=== PATIENT | female | born 1955 | race Two or more races ===

== ENCOUNTER 2017-04-04 08:07 | Emergency (ER) | payer MEDICARE, OTHER ==
[~2017-04-04] VITALS: Ht 162.6 cm; Wt 72.6 kg
[2017-04-04] MEDS ORDERED: NS 275ml ONE (08:26)
[2017-04-04 08:38] LABS: HEMOGLOBIN 15.4 G/DL (12.0-16.0); MEAN CORPUSCULAR VOLUME 92 FL (80-99); PLATELET COUNT 260 K/UL (150-450); RED BLOOD COUNT 5.09 M/UL (4.20-5.40); RED CELL DISTRIBUTION WIDTH 13.1 % (11.6-14.8); WHITE BLOOD COUNT 4.1 K/UL (4.8-10.8)
[2017-04-04] MEDS ORDERED: Solu-MEDROL 125mg Inj IVP ONE (08:45)
[2017-04-04] MEDS: Albuterol ud Inhalation HHN SCH ×3 (08:51→09:39)
[2017-04-04] MEDS: Ipratropium 0.02% Inh Soln 2.5ml UD HHN SCH ×3 (08:51→09:39)
[2017-04-04 08:52] LABS: ANION GAP 9 mmol/L (5-15); BLOOD UREA NITROGEN 9 mg/dL (7-18); CALCIUM 8.6 MG/DL (8.5-10.1); CARBON DIOXIDE 28 MMOL/L (21-32); CHLORIDE 105 MMOL/L (98-107); CREATININE 1.1 MG/DL (0.55-1.30); SODIUM 142 MMOL/L (136-145)
--- NOTE | 2017-04-04 08:53 | Emergency Room Report ---
History of Present Illness General Chief Complaint: Overdose Source: Patient Present Illness HPI 61-year-old female with COPD and hypertension, polysubstance abuse, presents with shortness of breath. Patient states that she got high yesterday, to cocaine as well as heroin. She was found by EMS, pinpoint pupils, Narcan was given with improvement of symptoms. Currently patient is awake alert oriented x4. States that she feels better. However patient is wheezing. Patient states that she has an inhaler and has been using it. Denies any fever chills chest pain Allergies: Coded Allergies: No Known Allergies (Unverified , 04/04/17) Patient History Past Medical History: see triage record Past Surgical History: none Pertinent Family History: none Reviewed Nursing Documentation: PMH: Agreed, PSxH: Agreed Nursing Documentation-PMH Past Medical History: No History, Except For Hx Hypertension: Yes Hx Asthma: Yes Hx Diabetes: Yes Review of Systems All Other Systems: negative except mentioned in HPI Physical Exam Vital Signs Date Time Temp Pulse Resp B/P (MAP) Pulse Ox O2 Delivery O2 Flow Rate FiO2 04/04/17 07:58 83 20 176/95 100 Room Air Sp02 EP Interpretation: reviewed, normal General Appearance: alert, GCS 15, non-toxic, mild distress Head: normocephalic, atraumatic Eyes: bilateral eye normal inspection, bilateral eye PERRL, bilateral eye EOMI ENT: normal ENT inspection, normal pharynx, normal voice, moist mucus membranes Neck: normal inspection, full range of motion, supple Respiratory: no respiratory distress, no retraction, speaking full sentences, other - exp wheezing bl, chest symmetrical Cardiovascular #1: normal inspection, regular rate, rhythm, normal capillary refill Cardiovascular #2: 2+ radial (R), 2+ radial (L) Gastrointestinal: normal inspection, non tender, soft, non-distended, no guarding Musculoskeletal: normal inspection, back normal, normal range of motion, non- tender Neurologic: normal inspection, alert, oriented x3, responsive, motor strength/ tone normal, sensory intact, normal gait, speech normal Psychiatric: normal inspection, judgement/insight normal, memory normal, no suicidal/homicidal ideation, no delusions Skin: normal inspection, normal color, no rash, warm/dry, well hydrated, normal turgor Medical Decision Making Diagnostic Impression: Primary Impression: Drug overdose Additional Impression: COPD exacerbation ER Course 61-year-old female, polysubstance abuse, COPD, presenting with dyspnea DDX: COPD exacerbation, viral syndrome, substance abuse/over use Plan: IV access, quality rep, O2 nasal cannula, EKG, CXR obtain basic labs troponin Duonebs, steroids Will consider BIPAP for persistent or worsening respiratory status ER Course: Patient's respiratory status has been closely monitored in the ED. Patient has been treated with combivent x 3, steroids, antibiotics. feels better lung exam improved VSS will dc home Disposition: Patient will be discharged abx and steroids fu with pmd in 5 days Please note that this Emergency Department Report was dictated using [employer] technology software, occasionally this can lead to erroneous entry secondary to interpretation by the dictation equipment. EKG Diagnostic Results EP Interpretation: Yes Rate: normal Rhythm: NSR ST Segments: No acute changes ASA given to patient: no Rhythm Strip EP Interpretation: Yes Rate: 70 Rhythm: NSR, no PVCs, no ectopy Chest X-ray CXR: Ordered: Yes 1 view Indication: Chest pain EP interpretation: Yes Interpretation: No consolidation, no effusion, no PTX, no acute cardiopulmonary disease Impression: No acute disease Electronically signed by Jermaine Bender MD Laboratory Tests Test 04/04/17 08:20 04/04/17 08:35 White Blood Count 4.1 K/UL (4.8-10.8) L Red Blood Count 5.09 M/UL (4.20-5.40) Hemoglobin 15.4 G/DL (12.0-16.0) Hematocrit 47.0 % (37.0-47.0) Mean Corpuscular Volume 92 FL (80-99) Mean Corpuscular Hemoglobin 30.3 PG (27.0-31.0) Mean Corpuscular Hemoglobin Concent 32.8 G/DL (32.0-36.0) Red Cell Distribution Width 13.1 % (11.6-14.8) Platelet Count 260 K/UL (150-450) Mean Platelet Volume 7.0 FL (6.5-10.1) Neutrophils (%) (Auto) % (45.0-75.0) Lymphocytes (%) (Auto) % (20.0-45.0) Monocytes (%) (Auto) % (1.0-10.0) Eosinophils (%) (Auto) % (0.0-3.0) Basophils (%) (Auto) % (0.0-2.0) Differential Total Cells Counted 100 Neutrophils % (Manual) 17 % (45-75) L Lymphocytes % (Manual) 58 % (20-45) H Monocytes % (Manual) 9 % (1-10) Eosinophils % (Manual) 15 % (0-3) H Basophils % (Manual) 1 % (0-2) Band Neutrophils 0 % (0-8) Platelet Estimate Adequate Platelet Morphology Normal Red Blood Cell Morphology Normal Sodium Level 142 MMOL/L (136-145) Potassium Level 4.0 MMOL/L (3.5-5.1) Chloride Level 105 MMOL/L (98-107) Carbon Dioxide Level 28 MMOL/L (21-32) Anion Gap 9 mmol/L (5-15) Blood Urea Nitrogen 9 mg/dL (7-18) Creatinine 1.1 MG/DL (0.55-1.30) Estimate Glomerular Filtration Rate 50.8 mL/min (>60) Glucose Level 121 MG/DL (74-106) H Calcium Level 8.6 MG/DL (8.5-10.1) Total Bilirubin 0.5 MG/DL (0.2-1.0) Aspartate Amino Transferase (AST) 146 U/L (15-37) H Alanine Aminotransferase (ALT) 70 U/L (12-78) Alkaline Phosphatase 132 U/L (46-116) H Total Protein 8.1 G/DL (6.4-8.2) Albumin 4.1 G/DL (3.4-5.0) Globulin 4.0 g/dL Albumin/Globulin Ratio 1.0 (1.0-2.7) Salicylates Level 2.7 ug/mL (2.8-20) L Acetaminophen Level < 2 MCG/ML (10-30) L Serum Alcohol < 3 mg/dL Urine Opiates Screen Negative (NEGATIVE) Urine Barbiturates Screen Negative (NEGATIVE) Phencyclidine (PCP) Screen Negative (NEGATIVE) Urine Amphetamines Screen Negative (NEGATIVE) Urine Benzodiazepines Screen Negative (NEGATIVE) Urine Cocaine Screen Positive (NEGATIVE) H Urine Marijuana (THC) Screen Negative (NEGATIVE) Last Vital Signs Date Time Temp Pulse Resp B/P (MAP) Pulse Ox O2 Delivery O2 Flow Rate FiO2 04/04/17 08:27 74 20 Room Air 04/04/17 07:58 176/95 100 Disposition: HOME, SELF-CARE Condition: Improved Scripts Prednisone* (PREDNISONE*) 20 Mg Tablet 40 MG ORAL DAILY for 5 Days, #10 TAB 0 Refills Prov: Jermaine Bender M.D. 04/04/17 Referrals: NOT CHOSEN JENN/,REFERRING (PCP) Jermaine Bender M.D. Apr 04, 2017 08:53
[2017-04-04 08:55] VITALS: BP 135/110
[2017-04-04 09:00] LABS: ALANINE AMINOTRANSFERASE 70 U/L (12-78); ALBUMIN 4.1 G/DL (3.4-5.0); ALKALINE PHOSPHATASE 132 U/L (46-116); ASPARTATE AMINO TRANSFERASE 146 U/L (15-37); BILIRUBIN,TOTAL 0.5 MG/DL (0.2-1.0)
[2017-04-04] MEDS ORDERED: PREDNISONE20 MG ORAL (09:41)
[2017-04-04] MEDS ORDERED: Azithromycin 500 MG in NS 275 ML IV ONE (09:45)
[2017-04-04] MEDS ORDERED: Azithromycin 500mg Inj IV ONE (10:44)
--- NOTE | 2017-04-04 11:18 | Diagnostic Imaging Report ---
Indication: Chest pain Technique: One view of the chest Comparison: none Findings: Lungs and pleural spaces are clear. The heart size is normal. There is central bronchial wall thickening Impression: No acute process
[2017-04-04] MEDS ORDERED: ZITHROMAX TRI-500 MG ORAL (11:45)
[2017-04-04 13:34] VITALS: BP 143/78
--- NOTE | 2017-04-05 17:09 | Cardiology Report ---
APPROVED REPORT EKG Measurement Heart [id number] Normal sinus rhythm Voltage criteria for left ventricular hypertrophy Septal infarct, age undetermined Abnormal ECG
== END 2017-04-04 13:36 | disposition home or self-care (01) ==
LOC: EDBD 08:07 → EMR 08:25
DX: T40.5X1A Poisoning by cocaine, accidental (unintentional), initial encounter (principal); T40.1X1A Poisoning by heroin, accidental (unintentional), initial encounter; J44.1 Chronic obstructive pulmonary disease with (acute) exacerbation; E11.9 Type 2 diabetes mellitus without complications; J45.909 Unspecified asthma, uncomplicated
CPT/HCPCS: 36415; 71045; 80053; 80307; 85007; 85025; 93005; 94640; 94664; 96365; 96375; 99284; G0480; J0456; J2930; J7050; 80329

== ENCOUNTER 2017-05-03 10:26 | Inpatient (IN) | payer MEDICARE, OTHER ==
[~2017-05-03] VITALS: Ht 165.1 cm; Wt 59.0 kg
[2017-05-03 10:26] VITALS: BP 103/67
[~2017-05-03 10:26] MED LIST: PREDNISONE20 MG ORAL; ZITHROMAX TRI-500 MG ORAL
[2017-05-03] MEDS ORDERED: ALBUTEROL2.5 MG/3 M INH (10:43)
[2017-05-03] MEDS ORDERED: UNOBMED (10:43)
[2017-05-03] MEDS ORDERED: SINGULAIR10 MG ORAL (10:43)
[2017-05-03] MEDS ORDERED: Solu-MEDROL 125mg Inj IVP ONE (10:45)
[2017-05-03] MEDS ORDERED: Ipratropium 0.02% Inh Soln 2.5ml UD HHN ONE (10:45)
[2017-05-03] MEDS: Albuterol ud Inhalation HHN SCH ×4 (11:11→19:28)
[2017-05-03 11:23] LABS: APPEARANCE,URINE SLIGHTLY CLOUDY; BILIRUBIN, URINE NEGATIVE (NEGATIVE); GLUCOSE, URINE (UA) 1+ (NEGATIVE); KETONES,URINE 1+ (NEGATIVE); LEUKOCYTE ESTERASE ,URINE 1+ (NEGATIVE); NITRITE,URINE NEGATIVE (NEGATIVE); PH,URINE 6 (4.5-8.0); PROTEIN,URINE 4+ (NEGATIVE); UROBILINOGEN,URINE 1 MG/DL (0.0-1.0)
--- NOTE | 2017-05-03 11:31 | Diagnostic Imaging Report ---
Indication: Chest pain Technique: One view of the chest Comparison: 04/04/2017 Findings: Lungs and pleural spaces are clear. Heart size is normal . No significant interim change Impression: No acute process
[2017-05-03 11:38] LABS: COLOR,URINE YELLOW
[2017-05-03 11:53] LABS: HEMATOCRIT 37.3 % (37.0-47.0); HEMOGLOBIN 12.2 G/DL (12.0-16.0); LYMPHOCYTES % (AUTO) 20.9 % (20.0-45.0); MEAN CORPUSCULAR VOLUME 91 FL (80-99); MONOCYTES % (AUTO) 5.3 % (1.0-10.0); NEUTROPHILS % (AUTO) 64.7 % (45.0-75.0); PLATELET COUNT 217 K/UL (150-450); RED BLOOD COUNT 4.12 M/UL (4.20-5.40); RED CELL DISTRIBUTION WIDTH 12.3 % (11.6-14.8); WHITE BLOOD COUNT 6.3 K/UL (4.8-10.8)
[2017-05-03 11:59] LABS: INR 1.1 (0.9-1.1)
[2017-05-03 12:00] VITALS: BP 124/89
[2017-05-03 12:01] LABS: ANION GAP 9 mmol/L (5-15); BLOOD UREA NITROGEN 9 mg/dL (7-18); CARBON DIOXIDE 27 MMOL/L (21-32); CHLORIDE 106 MMOL/L (98-107); CREATININE 0.9 MG/DL (0.55-1.30); POTASSIUM 3.7 MMOL/L (3.5-5.1); SODIUM 142 MMOL/L (136-145)
[2017-05-03 12:11] LABS: ALANINE AMINOTRANSFERASE 32 U/L (12-78); ALBUMIN 3.6 G/DL (3.4-5.0); ALBUMIN/GLOBULIN RATIO 1.2 (1.0-2.7); ALKALINE PHOSPHATASE 94 U/L (46-116); ASPARTATE AMINO TRANSFERASE 36 U/L (15-37); BILIRUBIN,TOTAL 0.8 MG/DL (0.2-1.0)
--- NOTE | 2017-05-03 12:58 | Emergency Room Report ---
History of Present Illness General Chief Complaint: Dyspnea/Respdistress Source: Patient Present Illness HPI The patient presents with shortness of breath and chest pain. She ran out of her inhaler. She denies having any fevers but has felt diaphoretic and nauseated. There is an exertional component to this also. She denies pain at this time, but has had also pleuritic when coughing. Phlegm has been mostly clear, but slightly yellow. Paramedics treated with albuterol in field with improvement. The patient stopped smoking April 04. In addition to that she's been in detox for heroine. She takes 20 mg of methadone at this time. She states she should be drug-free that is May 18. Stools slightly loose, she feels secondary to detox. No blood. Also c/o some joint pain. No depression and she is excited about being drug and tobacco free. The patient denies any prior heart problems. No DM, HTN, fam Hx. No dysuria. Allergies: Uncoded Allergies: Fresh fruits (Adverse Reaction, Unknown, Itching, 05/03/17) Patient History Past Medical History: see triage record Social History: Reports: smoking - stopped 04/04/17, drug use - heroin - in rehab Social History Narrative at home Now: No Reviewed Nursing Documentation: PMH: Agreed, PSxH: Agreed Nursing Documentation-PMH Hx Hypertension: Yes Hx Asthma: Yes Hx COPD: Yes Hx Diabetes: Yes Review of Systems All Other Systems: negative except mentioned in HPI Physical Exam Vital Signs Date Time Temp Pulse Resp B/P (MAP) Pulse Ox O2 Delivery O2 Flow Rate FiO2 05/03/17 10:20 97.7 76 18 103/67 93 Room Air Sp02 EP Interpretation: reviewed, normal General Appearance: well appearing, no apparent distress, GCS 15 Head: normocephalic Eyes: bilateral eye normal inspection, bilateral eye PERRL ENT: moist mucus membranes Neck: supple Respiratory: no respiratory distress, wheezing, expiration Cardiovascular #1: regular rate, rhythm Cardiovascular #2: 2+ radial (R) Gastrointestinal: normal inspection, normal bowel sounds, non tender, no mass, non-distended Musculoskeletal: back normal, gait/station normal, normal range of motion Neurologic: alert, oriented x3, grossly normal Psychiatric: mood/affect normal Skin: normal inspection, warm/dry Medical Decision Making Diagnostic Impression: Primary Impression: NSTEMI (non-ST elevated myocardial infarction) Additional Impressions: Asthma Qualified Codes: J45.41 - Moderate persistent asthma with (acute) exacerbation UTI (urinary tract infection) Qualified Codes: N30.00 - Acute cystitis without hematuria Heroin withdrawal Eosinophilia ER Course Patient presents with mild respiratory distress and chest pain. Differential includes acute myocardial infarction, acute coronary syndrome, exacerbation of asthma, pneumonia, having withdrawal amongst others. Her exam is significant for having bronchospasm at this time and this will be treated with breathing treatments and solu-medrol. Evaluation with EKG, CXR and labs. EKG shows no injury. Chest x-ray slightly enlarged heart infiltrates. A positive troponin was found. Eosinophilia suggests steroid responsive asthma. No infection identified and no antibiotics used. The patient is treated with nitroglycerin paste and aspirin. She is pain-free at this time and breathing is better. Patient needs admission for cardiac monitoring and cardiac workup was repeat troponins. Admit tele Dr. Penn. Laboratory Tests Test 05/03/17 10:55 05/03/17 11:12 Urine Color Yellow Urine Appearance Slightly cloudy Urine pH 6 (4.5-8.0) Urine Specific [place] 1.025 (1.005-1.035) Urine Protein 4+ (NEGATIVE) H Urine Glucose (UA) 1+ (NEGATIVE) H Urine Ketones 1+ (NEGATIVE) H Urine Occult Blood 4+ (NEGATIVE) H Urine Nitrite Negative (NEGATIVE) Urine Bilirubin Negative (NEGATIVE) Urine Urobilinogen 1 MG/DL (0.0-1.0) H Urine Leukocyte Esterase 1+ (NEGATIVE) H Urine RBC 15-20 /HPF (0 - 2) H Urine WBC 5-10 /HPF (0 - 2) H Urine Squamous Epithelial Cells Moderate /LPF (NONE/OCC) H Urine Bacteria Few /HPF (NONE) Urine Hyaline Casts 0-2 /LPF (NONE) H Urine Granular Casts 0-2 /LPF (NONE) H White Blood Count 6.3 K/UL (4.8-10.8) Red Blood Count 4.12 M/UL (4.20-5.40) L Hemoglobin 12.2 G/DL (12.0-16.0) Hematocrit 37.3 % (37.0-47.0) Mean Corpuscular Volume 91 FL (80-99) Mean Corpuscular Hemoglobin 29.6 PG (27.0-31.0) Mean Corpuscular Hemoglobin Concent 32.7 G/DL (32.0-36.0) Red Cell Distribution Width 12.3 % (11.6-14.8) Platelet Count 217 K/UL (150-450) Mean Platelet Volume 8.0 FL (6.5-10.1) Neutrophils (%) (Auto) 64.7 % (45.0-75.0) Lymphocytes (%) (Auto) 20.9 % (20.0-45.0) Monocytes (%) (Auto) 5.3 % (1.0-10.0) Eosinophils (%) (Auto) 8.0 % (0.0-3.0) H Basophils (%) (Auto) 1.0 % (0.0-2.0) Prothrombin Time 11.4 SEC (9.30-11.50) Prothrombin Time INR 1.1 (0.9-1.1) PTT 29 SEC (23-33) Sodium Level 142 MMOL/L (136-145) Potassium Level 3.7 MMOL/L (3.5-5.1) Chloride Level 106 MMOL/L (98-107) Carbon Dioxide Level 27 MMOL/L (21-32) Anion Gap 9 mmol/L (5-15) Blood Urea Nitrogen 9 mg/dL (7-18) Creatinine 0.9 MG/DL (0.55-1.30) Estimate Glomerular Filtration Rate > 60 mL/min (>60) Glucose Level 108 MG/DL (74-106) H Calcium Level 9.0 MG/DL (8.5-10.1) Total Bilirubin 0.8 MG/DL (0.2-1.0) Aspartate Amino Transferase (AST) 36 U/L (15-37) Alanine Aminotransferase (ALT) 32 U/L (12-78) Alkaline Phosphatase 94 U/L (46-116) Troponin I 0.376 ng/mL (0.000-0.056) Pro-B-Type Natriuretic Peptide 58 pg/mL (0-125) Total Protein 6.7 G/DL (6.4-8.2) Albumin 3.6 G/DL (3.4-5.0) Globulin 3.1 g/dL Albumin/Globulin Ratio 1.2 (1.0-2.7) EKG Diagnostic Results Rate: normal Rhythm: NSR ST Segments: no acute changes Rhythm Strip Diag. Results EP Interpretation: yes Rhythm: NSR, no PVC's, no ectopy Chest X-Ray Diagnostic Results Chest X-Ray Diagnostic Results : Chest X-Ray Ordered: Yes # of Views/Limited/Complete: 1 View Indication: Other EP Interpretation: Yes Interpretation: no consolidation, no effusion, no pneumothorax Impression: Other Electronically Signed by: Electronically signed by Taz Parsons MD Last Vital Signs Date Time Temp Pulse Resp B/P (MAP) Pulse Ox O2 Delivery O2 Flow Rate FiO2 05/03/17 15:58 98.7 74 12 117/58 96 Nasal Cannula 1.0 Status: improved Disposition: ADMITTED INPATIENT Condition: Serious Referrals: NOT CHOSEN JENN/,REFERRING (PCP) Taz Parsons M.D. May 03, 2017 12:58
[2017-05-03] MEDS ORDERED: cefTRIAXone 1 GM in NS 55 ML IVPB ONE (13:00)
[2017-05-03] MEDS ORDERED: DiphenhydrAMINE 50mg/ml Inj IVP ONE (13:00)
[2017-05-03 14:00] VITALS: BP 123/69
[2017-05-03 15:39] VITALS: BP 117/58
[2017-05-03] MEDS ORDERED: NIFEDIPINE ER30 MG (16:11)
[2017-05-03 16:30] VITALS: BP 141/80
[2017-05-03] MEDS ORDERED: Albuterol/Ipratropium 3ml neb HHN PRN (16:45)
--- NOTE | 2017-05-03 17:30 | Cardiology Progress Note ---
Assessment/Plan Assessment/Plan The patient is seen and examined, full consult note is dictated. Objective Last 24 Hour Vital Signs Date Time Temp Pulse Resp B/P (MAP) Pulse Ox O2 Delivery O2 Flow Rate FiO2 05/03/17 15:58 98.7 74 12 117/58 96 Nasal Cannula 1.0 05/03/17 15:39 98.7 74 12 117/58 96 Nasal Cannula 1.0 05/03/17 14:00 72 12 123/69 96 Nasal Cannula 1.0 05/03/17 12:10 60 16 100 Room Air 05/03/17 12:00 98.1 70 17 124/89 96 Room Air 05/03/17 11:51 60 16 100 Room Air 05/03/17 11:49 61 16 100 Room Air 05/03/17 11:37 57 16 100 Room Air 05/03/17 11:35 57 16 100 Room Air 05/03/17 11:16 69 18 Room Air 05/03/17 11:11 69 18 94 Room Air 05/03/17 10:37 76 18 Room Air 05/03/17 10:26 97.7 74 18 103/67 93 Room Air 05/03/17 10:20 97.7 76 18 103/67 93 Room Air Laboratory Tests Test 05/03/17 10:55 05/03/17 11:12 Urine Color Yellow Urine Appearance Slightly cloudy Urine pH 6 (4.5-8.0) Urine Specific [place] 1.025 (1.005-1.035) Urine Protein 4+ (NEGATIVE) H Urine Glucose (UA) 1+ (NEGATIVE) H Urine Ketones 1+ (NEGATIVE) H Urine Occult Blood 4+ (NEGATIVE) H Urine Nitrite Negative (NEGATIVE) Urine Bilirubin Negative (NEGATIVE) Urine Urobilinogen 1 MG/DL (0.0-1.0) H Urine Leukocyte Esterase 1+ (NEGATIVE) H Urine RBC 15-20 /HPF (0 - 2) H Urine WBC 5-10 /HPF (0 - 2) H Urine Squamous Epithelial Cells Moderate /LPF (NONE/OCC) H Urine Bacteria Few /HPF (NONE) Urine Hyaline Casts 0-2 /LPF (NONE) H Urine Granular Casts 0-2 /LPF (NONE) H White Blood Count 6.3 K/UL (4.8-10.8) Red Blood Count 4.12 M/UL (4.20-5.40) L Hemoglobin 12.2 G/DL (12.0-16.0) Hematocrit 37.3 % (37.0-47.0) Mean Corpuscular Volume 91 FL (80-99) Mean Corpuscular Hemoglobin 29.6 PG (27.0-31.0) Mean Corpuscular Hemoglobin Concent 32.7 G/DL (32.0-36.0) Red Cell Distribution Width 12.3 % (11.6-14.8) Platelet Count 217 K/UL (150-450) Mean Platelet Volume 8.0 FL (6.5-10.1) Neutrophils (%) (Auto) 64.7 % (45.0-75.0) Lymphocytes (%) (Auto) 20.9 % (20.0-45.0) Monocytes (%) (Auto) 5.3 % (1.0-10.0) Eosinophils (%) (Auto) 8.0 % (0.0-3.0) H Basophils (%) (Auto) 1.0 % (0.0-2.0) Prothrombin Time 11.4 SEC (9.30-11.50) Prothromb Time International Ratio 1.1 (0.9-1.1) Activated Partial Thromboplast Time 29 SEC (23-33) Sodium Level 142 MMOL/L (136-145) Potassium Level 3.7 MMOL/L (3.5-5.1) Chloride Level 106 MMOL/L (98-107) Carbon Dioxide Level 27 MMOL/L (21-32) Anion Gap 9 mmol/L (5-15) Blood Urea Nitrogen 9 mg/dL (7-18) Creatinine 0.9 MG/DL (0.55-1.30) Estimat Glomerular Filtration Rate > 60 mL/min (>60) Glucose Level 108 MG/DL (74-106) H Calcium Level 9.0 MG/DL (8.5-10.1) Total Bilirubin 0.8 MG/DL (0.2-1.0) Aspartate Amino Transf (AST/SGOT) 36 U/L (15-37) Alanine Aminotransferase (ALT/SGPT) 32 U/L (12-78) Alkaline Phosphatase 94 U/L (46-116) Troponin I 0.376 ng/mL (0.000-0.056) Pro-B-Type Natriuretic Peptide 58 pg/mL (0-125) Total Protein 6.7 G/DL (6.4-8.2) Albumin 3.6 G/DL (3.4-5.0) Globulin 3.1 g/dL Albumin/Globulin Ratio 1.2 (1.0-2.7) DEYVI CLARK May 03, 2017 17:30
[2017-05-03 20:00] VITALS: BP 129/68
[2017-05-03] MEDS: Montelukast 10mg tablet ORAL SCH (21:43)
[2017-05-03] MEDS: Atorvastatin 80mg tab ORAL SCH (21:44)
[2017-05-03] MEDS: Enoxaparin 60mg Inj SUBQ SCH (21:45)
[2017-05-04] VITALS (7 sets, daily range): BP systolic 120–140; BP diastolic 61–73
[2017-05-04] MEDS: Albuterol/Ipratropium 3ml neb HHN PRN ×3 (05:18→21:19)
[2017-05-04] MEDS: Albuterol ud Inhalation HHN SCH ×3 (07:28→19:05)
[2017-05-04] MEDS ORDERED: Advair 250/50 Inhaler - 14 dose INH SCH ×2 (09:00)
[2017-05-04] MEDS ORDERED: Aspirin Baby 81mg ORAL SCH (09:00)
[2017-05-04] MEDS: Solu-MEDROL 125mg Inj IVP SCH ×2 (09:45→21:26)
[2017-05-04] MEDS: Enoxaparin 60mg Inj SUBQ SCH ×2 (09:45→21:27)
[2017-05-04] MEDS ORDERED: Azithromycin 250mg tab ORAL ONE (11:00)
--- NOTE | 2017-05-04 12:59 | Consultation ---
Consult Note Assessment/Plan pulm consult dict FAUSTINO CHIRINOS May 04, 2017 12:59
[2017-05-04] MEDS ORDERED: cefTRIAXone 1 GM in NS 55 ML IVPB SCH (13:00)
--- NOTE | 2017-05-04 14:47 | Cardiology Report ---
APPROVED REPORT EXAM: Two-dimensional and M-mode echocardiogram with Doppler and color Doppler. INDICATION Acute myocard infarction M-Mode DIMENSIONS IVSd0.9 (0.7-1.1cm)Left Atrium (MM)3.2 (1.6-4.0cm) LVDd3.5 (3.5-5.6cm)Aortic Root2.0 (2.0-3.7cm) PWd0.8 (0.7-1.1cm)Aortic Cusp Exc.1.9 (1.5-2.0cm) LVDs2.1 (2.5-4.0cm) PWs1.6 cm Normal left ventricular chamber size, systolic function and wall motion. Left ventricular ejection fraction estimated to be 60-65 %. No evidence of left ventricular hypertrophy. No evidence of pericardial effusion. All other cardiac chamber sizes are within normal limits. Normal appearing aortic, mitral, pulmonic and tricuspid valves. Mild mitral annulus and aortic root calcification. IVC dilated at 2.1 cm with physiological collapse. A color flow and spectral Doppler study was performed and revealed: No aortic insufficiency. Trace mitral regurgitation. Normal left ventricular diastolic function. Mild to moderate tricuspid regurgitation. Tricuspid systolic velocities suggests peak right ventricular systolic pressure of 70 mmHg, consistent with severe pulmonary hypertension. Trace pulmonic regurgitation present.
[2017-05-04] MEDS ORDERED: Milk of Magnesia 30ml Ud ORAL PRN (15:30)
[2017-05-04] MEDS ORDERED: Montelukast 10mg tablet ORAL SCH (18:00)
--- NOTE | 2017-05-04 19:03 | Cardiology Report ---
APPROVED REPORT EKG Measurement Heart [id number] Normal sinus rhythm Biatrial enlargement Left ventricular hypertrophy with repolarization abnormality Cannot rule out Septal infarct, age undetermined Abnormal ECG
[2017-05-04] MEDS ORDERED: Docusate 100mg cap ORAL SCH (21:00)
[2017-05-04] MEDS ORDERED: Lansoprazole 15mg cap ORAL SCH (21:00)
--- NOTE | 2017-05-04 21:00 | History and Physical Report ---
DATE OF ADMISSION: 05/03/2017 HISTORY OF PRESENT ILLNESS: The patient has been in the hospital emergency room twice for this month, first time was weeks ago and the patient according to her has history of asthma/COPD, was short of breath, and according to her, she had a syncopal episode, her boyfriend was there CPR and 911 to come to the hospital. At this time, the patient again has history of smoking, history of asthma/COPD. She has a history of drug abuse, goes to methadone clinic. At this time, the patient was short of breath again. The patient called 911. Oxygen and nebulizer was given. No chest pain. Either time, the patient did not have any chest pain, had wheezing mostly, and felt tight short of breath. The patient denies abdominal pain. Denies nausea, vomiting, diarrhea, fever, or chills. Denies diaphoresis. Denies any cold symptoms. The patient was admitted for non-STEMI. PAST MEDICAL HISTORY: Asthma/COPD, rheumatoid arthritis, and hypertension. PAST SURGICAL HISTORY: Hysterectomy. MEDICATIONS: Nifedipine, Singulair, and albuterol breathing treatments. ALLERGIES: Fresh fruits. SOCIAL HISTORY: The patient has a history of smoking, quit about a couple of weeks ago. History of drug abuse. No history of alcohol abuse. The patient also goes to methadone clinic. FAMILY HISTORY: History of asthma. REVIEW OF SYSTEMS: HEENT: Denies headaches. RESPIRATORY: Reports shortness of breath and wheezing for a couple of weeks. It is getting worse and some dry cough. CARDIOVASCULAR: Denies chest pain. Denies orthopnea. GASTROINTESTINAL: Denies nausea, vomiting or diarrhea. EXTREMITIES: Denies any significant extremity pain. CENTRAL NERVOUS SYSTEM: Denies any change in vision or speech pattern. Does have wheezing. No chest pain. No orthopnea. PHYSICAL EXAMINATION: VITAL SIGNS: Temperature is 98.6, pulse is 74, and blood pressure is 132/68. HEENT: PERRLA. NECK: Supple. CHEST: Bibasilar wheezing. The patient is moving air, however, somewhat tight. CARDIOVASCULAR: Regular rate and rhythm. No murmurs or extra sounds. GASTROINTESTINAL: Soft, nontender, and nondistended. No organomegaly. EXTREMITIES: No edema. Moves all 4 extremities. NEUROLOGIC: Sensory intact to light touch. Reflexes are equal on both sides. LABORATORY AND DIAGNOSTIC DATA: WBC of 6.3, hemoglobin 12.2, and platelets of 217. Sodium 142, potassium 3.7, chloride 106, BUN of 9, creatinine of 0.9 and glucose of 108. Troponin of 0.376. EKG shows non-STEMI. ASSESSMENT AND PLAN: Positive myocardial infarction, coronary artery disease, history of asthma and chronic obstructive pulmonary disease. The patient according to Dr. Taylor is on list to go to [facility] for cardiac catheterization and basically Dr. Fountain is consulted for methadone as well as Dr. Richey to rule out pneumonia as well as Dr. Thornton for dehydration and Dr. Meadows for the asthma/chronic obstructive pulmonary disease and Dr. Thornton, Dr. Richey, as well as Dr. Taylor for the positive myocardial infarction. Mario Penn M.D. DR: ZACK JOB#: [id number] CC:
[2017-05-04] MEDS: Atorvastatin 80mg tab ORAL SCH (21:24)
[2017-05-04] MEDS: Montelukast 10mg tablet ORAL SCH (22:13)
[2017-05-05] MEDS ORDERED: Tubing IV Secondary IV ONE (00:19)
--- NOTE | 2017-05-05 03:00 | Consultation ---
DATE OF CONSULTATION: 05/03/2017 CARDIOLOGY CONSULTATION CONSULTING PHYSICIAN: Sridhar Taylor M.D. REFERRING PHYSICIAN: Margarita Penn M.D. REASON FOR CONSULTATION: Management of shortness of breath and elevated troponin level. HISTORY OF PRESENT ILLNESS: The patient is a very pleasant 61-year-old lady, who presents to the hospital with shortness of breath. She has history of chronic obstructive pulmonary disease and claims that she run out of her inhaler. She felt diaphoretic and nauseated. She states that she has pain and heroin addict for two years and trying to be sober. She states that she also was smoking cocaine for about seven years and tobacco for about 30 years about half a pack a day. She has been started on methadone 20 mg for the past five days and she claims that she should be drug free by 05/18/2017. She denies any chest pain, although according to the emergency department, there was a complaint of chest pain at the time of arrival to the hospital. She also had another admission to this facility on 04/04/2017 for drug overdose, which was mainly cocaine. She had accelerated hypertension at that admission. At the time of arrival to this facility at this time, her blood pressure was 103/67 mmHg. A 12-lead electrocardiogram showed left ventricular hypertrophy, but no evidence of acute ST and T-wave abnormalities. PAST MEDICAL HISTORY: 1. Drug overdose with cocaine. 2. Polysubstance abuse. 3. Chronic obstructive pulmonary disease. 4. Hypertension. 5. Diabetes mellitus. PAST SURGICAL HISTORY: None. ALLERGIES: No known drug allergies. MEDICATIONS: Her list of medication including albuterol inhaler three times a day, azithromycin 500 mg p.o. daily, Singulair 10 mg p.o. daily, nifedipine ER 30 mg one tablet p.o. daily, and prednisone 40 mg daily and is not clear whether this is a tapering dose. FAMILY HISTORY: No premature coronary artery disease in first-degree relatives. REVIEW OF SYSTEMS: HEENT: Denies any headache, diplopia, or blurred vision. CONSTITUTIONAL: Denies any fever, chills, night sweats, or weight loss. CARDIOVASCULAR: Complains of shortness of breath. No PND, orthopnea, or leg swelling. Denies any chest pain at this time. Denies any loss of consciousness or palpitation. PULMONARY: Denies any cough. She has been complaining of shortness of breath and in fact the patient has complaints of cough, but no hemoptysis. GASTROINTESTINAL: She had some nausea. No abdominal pain. No GI bleed. No diarrhea or constipation. NEUROLOGIC: Denies any motor dysfunction, sensory deficit, or altered speech. UROLOGY: Denies any hematuria, dysuria, or incontinence. PHYSICAL EXAMINATION: VITAL SIGNS: Blood pressure at the time of arrival to the hospital was 103/67, respirations of 18, pulse of 76, temperature 97.7 degrees Fahrenheit, and O2 saturation 93% on room air. GENERAL: The patient is a pleasant 61-year-old lady, in no apparent respiratory distress. HEENT: Atraumatic and normocephalic. Anicteric. Pupils are equal, round, and reactive to light and accommodation. Extraocular muscles are intact. NECK: JVP is less than 5 cm. No carotid bruit. Carotid upstrokes 2+ bilaterally. CARDIOVASCULAR: Normal S1, S2. Regular rate and rhythm. No murmurs, gallops, or rubs. PMI is at fourth intercostal space in the midclavicular line. LUNGS: Diminished breath sounds with expiratory rhonchi. Prolonged expiratory phase. ABDOMEN: Soft, nontender, and nondistended. No hepatosplenomegaly. Positive bowel sounds. EXTREMITIES: No evidence of edema, clubbing, or cyanosis. LABORATORY AND DIAGNOSTIC DATA: Laboratory findings, WBC 6.3, hemoglobin 12.2, hematocrit 37.3, and platelet count is 217. Sodium is 142, potassium is 3.7, chloride 106, bicarbonate 27, BUN of 9, creatinine 0.9, glucose is 108, and calcium is 9.0. Troponin I is 0.376. ProBNP is 58. INR is 1.1. Chest x-ray shows no acute cardiopulmonary disease. ECG shows 12-lead electrocardiogram shows sinus rhythm at a rate of 67 with left ventricular hypertrophy and left atrial enlargement and right atrial enlargement. There is possible ST-segment depression in III and aVF, which may suggest ischemia in the inferior wall. ASSESSMENT AND PLAN: The patient is a very unfortunate 61-year-old female, seen in Cardiology consultation at request of Dr. Penn. 1. Non-ST elevation myocardial infarction in view of the elevated troponin I level of 0.3. The patient also was symptomatic with shortness of breath. I have discussed the fact that the patient may require left heart catheterization and coronary angiography. There is some suspicious ST-segment changes in the inferior leads. I will speak with the case finishing machine adjuster. She may require to be transferred to [facility] [place] for heart catheterization. 2. Most likely acute exacerbation of chronic obstructive pulmonary disease. The patient will benefit from Solu-Medrol 40 mg three times a day, nebulizer, and oxygen therapy. Pulmonary toilet is also recommended. 3. History of hypertension with presence of left ventricular hypertrophy on the EKG. We have ordered 2D echocardiography for assessment of left ventricular systolic and diastolic function and also assessment for hypertensive heart disease. 4. Diabetes ?. The patient was not on any diabetic pills. 5. Polysubstance abuse, currently on methadone for drug detox. I would like to thank, Dr. Penn, for courtesy of this consultation. Sridhar Taylor M.D. DR: SO JOB#: [id number] CC:
[2017-05-05] MEDS ORDERED: Azithromycin 250mg tab ORAL SCH (09:00)
[2017-05-05] MEDS ORDERED: Sennosides 8.6mg ORAL SCH (09:00)
--- NOTE | 2017-05-06 10:35 | Discharge Summary ---
Discharge Summary Hospital Course Date of Admission May 03, 2017 at 13:24 Date of Discharge May 05, 2017 at 00:20 Admitting Diagnosis NSTEMI HPI Dianne Robertson is a 61 year old female who was admitted on May 03, 2017 at 13: 24 for Nstemi Hospital Course [id number] Discharge Discharge Disposition Patient was discharged to [facility] Discharge Diagnoses: Dea Ortega NP May 06, 2017 10:35
--- NOTE | 2017-05-06 12:54 | Consultation ---
DATE OF CONSULTATION: 05/04/2017 PULMONARY CONSULTATION HISTORY OF PRESENT ILLNESS: The patient is a 61-year-old woman who came to the emergency department because of increasing shortness of breath and some chest pain. She states that she has had asthma since she was a child, but it has been worse in the last few months. She had an episode of shortness of breath and chest pain about a month ago and states that she had a cardiac arrest and was hospitalized. She quit smoking at that time. She ran out of her inhaler 1 or 2 days ago and has been using albuterol excessively. She does not use her steroid inhaler often; she is uncertain of the name. PAST MEDICAL HISTORY: The patient is a heroin addict and has recently stopped using drugs and is on methadone. She has a history of asthma and possibly cardiac arrest as noted above. MEDICATIONS: Albuterol, Zithromax, Singulair, nifedipine, prednisone and methadone. REVIEW OF SYSTEMS: Otherwise, unremarkable. PHYSICAL EXAMINATION: GENERAL: The patient is alert and responsive. She is thin, in no distress. VITAL SIGNS: Normal. HEENT: Head is normocephalic. NECK: No jugular venous distention. CHEST: Expiratory wheezing. CARDIAC: Rhythm is regular. ABDOMEN: Soft and nontender. EXTREMITIES: No edema. LABORATORY AND DIAGNOSTIC DATA: Chest x-ray is clear. Laboratory studies notable for elevated eosinophils and some microhematuria. Troponin is mildly elevated and rising to 0.9 this morning. IMPRESSION: 1. Acute exacerbation of asthma. 2. Chest pain with elevated troponin. 3. Methadone maintenance for heroin addiction. 4. Tobacco abuse, mow free of tobacco for one month. PLAN: The patient will be treated with bronchodilators and steroids. Cardiology has seen her. Antibiotics were ordered. Methadone will be continued. I will be happy to follow her in the hospital with you. Thank you. Jaspreet Meadows M.D. DR: KEITH JOB#: [id number] CC: Mario Penn M.D.; Fax#: [phone] JASPREET MEADOWS M.D. ; FAX#: [phone]
--- NOTE | 2017-05-06 12:55 | Consultation ---
DATE OF CONSULTATION: 05/04/2017 NOTE: POOR AUDIO INFECTIOUS DISEASES CONSULTATION CONSULTING PHYSICIAN: Chico Lainez M.D. PRIMARY ATTENDING PHYSICIAN: Mario Penn M.D. REASON FOR CONSULT: Chronic obstructive pulmonary disease, asthma exacerbation, pyuria, and urinary tract infection. HISTORY OF PRESENT ILLNESS: The patient is a 61-year-old female, admitted yesterday with shortness of breath and chest pain. The patient has asthma, chronic obstructive pulmonary disease, and she ran out of inhaler. After some walking, becomes diaphoretic had called 911. The patient had a similar episode early in April and needed CPR by boyfriend. Denies any fever, has dry cough. No chest pain at the time of examination. PAST MEDICAL HISTORY: Significant for nicotine dependence, heroin abuse, currently on methadone , asthma, and hypertension. Denies diabetes. She said that she had early emphysema. ALLERGIES: food allergies. No known drug allergies. MEDICATIONS: Symbicort inhaler, , aspirin, nifedipine, methadone, albuterol and ipratropium inhaler, atorvastatin, enoxaparin, montelukast, Tylenol, a dose of Rocephin in the ER. SOCIAL HISTORY: Single, has a child. Former smoker. Uses nasal heroin, is quitting that. REVIEW OF SYSTEMS: No fever. No chills. Has shortness of breath, especially with exertion. Dry cough. Pleuritic chest pain. Wheezing. Denies any problem passing urine. PHYSICAL EXAMINATION: VITAL SIGNS: Afebrile, temperature 96.8, pulse 74, and blood pressure 132/68. GENERAL APPEARANCE: Well developed, in no acute distress. HEAD AND NECK: No oral lesion. Deputy conjunctivae. HEART: S1 and S2 regular. LUNGS: Has severe wheezing bilaterally. ABDOMEN: Soft and nontender. EXTREMITIES: Has no edema. NEUROLOGIC: Awake, alert, and oriented x3. LABORATORY AND DIAGNOSTIC DATA: UA showed WBC of 5 to 10, RBC of 15 to 20, and leukocyte esterase 1+. Troponin is elevated 0.914. Sodium 142, potassium 3.7, chloride 106, bicarbonate 27, BUN 9, creatinine 0.9, and glucose is 108. Chest x-ray showed no acute process. IMPRESSION: Chronic obstructive pulmonary disease, asthma exacerbation. The patient had elevated troponin, hypertension, has history of heroin use, in remission. RECOMMENDATIONS: We will continue with ceftriaxone. We will start also azithromycin. We will follow up the labs and cultures. We will follow up the echocardiogram. At the end of my exam, I thank Dr. Penn for involving me in the care of this patient. Chico Lainez M.D. DR: FREDERIC JOB#: [id number] CC: EJ
--- NOTE | 2017-05-07 03:45 | Discharge Summary 2 SIG ---
DATE OF ADMISSION: 05/03/2017 DATE OF DISCHARGE: 05/05/2017 CONSULTANTS: 1. Sridhar Taylor M.D. 2. Jaspreet Meadows M.D. BRIEF HOSPITAL COURSE: The patient is a 61-year-old female, who has been in the hospital emergency room twice for this month due to shortness of breath. The patient has history of asthma/chronic obstructive pulmonary disease and according to her had a syncopal episode. She has history of heroin use and has been in detox. She takes 20 mg of methadone and states to be drug free. On evaluation at ED, EKG showed no injury. Chest x-ray showed slightly enlarged heart with no acute process. She presented with mild respiratory distress and chest pain. Troponin was 0.376. EKG showed normal sinus rhythm. She was given nitroglycerin paste and aspirin. She was admitted to telemetry for evaluation of non-ST elevated myocardial infarction and possible urinary tract infection as urine WBC 5 to 10, urine RBC 15 to 20 with 1+ leukocyte esterase. She had elevated troponin and she claims blood pressure was slightly elevated, however, at the time of arrival to this facility, blood pressure was 103/67. A 12-lead echocardiogram showed left ventricular hypertrophy with no evidence of acute ST to T-wave abnormalities. She was placed on Solu-Medrol for possible exacerbation of chronic obstructive pulmonary disease and was given nebulizer treatment and oxygen therapy. She had an echocardiogram done that showed ejection fraction of 60% to 65% with no evidence of left ventricular hypertrophy, normal left ventricular chamber size, systolic function, and wall motion. She had severe pulmonary hypertension with peak right ventricular systolic pressure of 70. Cardiac troponins were monitored. Second troponin was elevated to 0.9. She was eventually transferred to [facility] for a cardiac catheterization. FINAL DIAGNOSES: 1. Acute non-ST elevated myocardial infarction. 2. Acute exacerbation of chronic obstructive pulmonary disease. 3. Hypertension. 4. Polysubstance abuse. 5. Possible diabetes. DISPOSITION: The patient was discharged to acute care hospital. DISCHARGE MEDICATIONS: Continue hospital medications. Mario Penn M.D. I have been assigned to dictate discharge summary on this account and I was not involved in the patient's management. Dea Ortega N.P. DR: ASHLEIGH JOB#: [id number] CC: EJ
--- NOTE | 2017-05-08 17:02 | Cardiology Report ---
APPROVED REPORT EKG Measurement Heart [id number] Normal sinus rhythm Minimal voltage criteria for LVH, may be normal variant Prolonged QT Abnormal ECG
--- NOTE | 2017-05-10 11:40 | Diagnostic Imaging Report ---
APPROVED REPORT CPT Code: 68005 Present Symptoms Comments: R/O DVT BILATERAL: Imaging reveals a patent deep venous system bilaterally. There is no evidence of thrombus within the femoral, popliteal or tibial segments. The greater saphenous veins are also within normal limits. Doppler indicates normal spontaneous flow within these segments.
== END 2017-05-05 00:20 | disposition short-term general hospital (02) | DRG 281 ==
LOC: EDBD 10:26 → EMR 11:35 → 2E 13:24 → EDBEDREQ 14:58
DX: I21.4 Non-ST elevation (NSTEMI) myocardial infarction (principal); N39.0 Urinary tract infection, site not specified; E11.9 Type 2 diabetes mellitus without complications; Z86.74 Personal history of sudden cardiac arrest; J44.1 Chronic obstructive pulmonary disease with (acute) exacerbation; J45.901 Unspecified asthma with (acute) exacerbation; I10 Essential (primary) hypertension; M06.9 Rheumatoid arthritis, unspecified; I25.10 Atherosclerotic heart disease of native coronary artery without angina pectoris; F11.99 Opioid use, unspecified with unspecified opioid-induced disorder; Z87.891 Personal history of nicotine dependence; Z79.51 Long term (current) use of inhaled steroids
CPT/HCPCS: 36415; 71045; 80053; 81003; 83880; 84484; 85025; 85610; 85730; 87081; 93005; 93306; 93970; 94640; 94664; 94760; 99285; J7620